=== PATIENT | female | born 1970 | race Two or more races ===

== ENCOUNTER 2021-08-07 10:47 | Emergency (ER) | payer MEDICARE, OTHER ==
[~2021-08-07] VITALS: Ht 157.5 cm; Wt 82.6 kg
[2021-08-07 12:35] LABS: Basophils # (auto) 0.1 10 ^3/uL (0-0.2); Eosinophils # (auto) 0.9 10 ^3/uL (0-0.8); Eosinophils % (auto) 10.9 % (0.0-7.0); Hematocrit 40.9 % (36.0-46.0); Hemoglobin 13.4 g/dL (12.2-16.2); Lymphocytes # (auto) 1.3 10 ^3/uL (0.4-5.4); Lymphocytes % (auto) 16.2 % (10.0-50.0); Mean Corpuscular Hemoglobin 27.2 pg (28.0-32.0); Mean Corpuscular Hgb Conc. 32.6 g/dL (32.0-36.0); Mean Corpuscular Volume 83.3 fL (80.0-100.0); Monocytes # (auto) 0.7 10 ^3/uL (0-1.3); Monocytes % (auto) 8.1 % (0.0-12.0); Neutrophils # (auto) 5.2 10 ^3/uL (1.6-8.6); Neutrophils % (auto) 63.8 % (37.0-80.0); Nucleated Red Blood Cells % 0.1 %; Red Blood Cells 4.91 10^6/uL (4.0-5.20); Red Cell Distribution Width 15.2 % (11.8-14.3); White Blood Cell 8.1 10^3/uL (4.4-10.8)
[2021-08-07 12:53] LABS: Urine Bacteria FEW /hpf (None Seen); Urine Blood Negative /uL (Negative); Urine Mucus FEW (None Seen); Urine Specific Gravity 1.018 (1.001-1.035); Urine WBC 1 /hpf (0 - 5)
[2021-08-07 13:03] LABS: Potassium 4.7 mmol/L (3.5-5.1)
[2021-08-07 13:07] LABS: Albumin 3.5 g/dL (3.4-5.0); BUN/Creatinine Ratio 12.3
[2021-08-07 13:10] LABS: Bilirubin, Total 0.3 mg/dL (0.2-1.0); Total Protein 7.8 g/dL (6.4-8.2)
[2021-08-07] MEDS ORDERED: CEPH-322 PO (14:33)
[2021-08-07 14:40] VITALS: BP 122/74
== END 2021-08-07 14:42 | disposition home or self-care (01) ==
LOC: ER 10:47
DX: N39.0 Urinary tract infection, site not specified (principal); I10 Essential (primary) hypertension; Z32.02 Encounter for pregnancy test, result negative
CPT/HCPCS: 36415; 80053; 81001; 81025; 85025